=== PATIENT | female | born 1990 | race Caucasian/White ===

== ENCOUNTER 2024-05-19 05:33 | Inpatient (IN) ==
[2024-05-19] MEDS: Lactated Ringers 1000 ml BAG 1,000 ML IV SCH (06:45)
[2024-05-19 06:56] LABS: ABS Eosinophils 0.1 10^3/uL (0.0-0.5); ABS Lymphocytes 2.1 10^3/uL (1.0-4.8); ABS Monocytes 0.6 10^3/uL (0.0-0.9); ABS Neutrophils 6.4 10^3/uL (1.5-7.6); ABS Nucleated RBC 0.01 10^3/ul; Hematocrit 33.9 % (35-45); Hemoglobin 11.9 g/dL (11.5-14.3); Lymphocyte % 22.1 %; Mean Corpuscular Hemoglobin 31.6 pg (27-33); Mean Corpuscular Volume 90.4 fL (80-97); Mean Platelet Volume 10.6 fL (7.5-11.2); Nucleated Red Blood Cells % 0.1 %/100WBC (0.0-0.8); Platelet Count 152 10^3/uL (150-450); Red Blood Count 3.75 10^6/uL (3.63-4.92); Red Cell Distribution Width 12.9 % (12-17); White Blood Count 9.3 10^3/uL (3.8-11.8)
[2024-05-19] MEDS ORDERED: Ondansetron 4 mg VIAL 2 MG/ML 2 ml VIAL IV PRN (07:06)
[2024-05-19] MEDS ORDERED: Acetaminophen IV 1 GM/100ML 1,000 MG/100 ML BAG IV PRN (07:06)
[2024-05-19] MEDS ORDERED: Metoclopramide 5 MG/ML VIAL (10 mg) IV PRN (07:06)
[2024-05-19] MEDS ORDERED: Naloxone 0.4 mg VIAL 0.4 mg/ml 1 ml VIAL IV PUSH PRN (07:06)
[2024-05-19] MEDS ORDERED: Bupivacaine-MPF SPINAL 7.5 MG/ML - 2ML AMP ONE (07:27)
[2024-05-19] MEDS ORDERED: Dexamethasone IV 4 MG/ML VIAL 1 ml VIAL ONE (07:27)
[2024-05-19] MEDS ORDERED: Ondansetron 4 mg VIAL 2 MG/ML 2 ml VIAL ONE (07:27)
[2024-05-19] MEDS ORDERED: Oxytocin 10 UNITS/ML 1 ML VIAL ONE (07:27)
[2024-05-19] MEDS ORDERED: Morphine PF AMP (0.5MG/ML) 5 MG/10 ML AMP ONE (07:27)
[2024-05-19] MEDS: Sodium Citrate/Citric Acid LIQ 15 ML UDC PO ONE (07:33)
[2024-05-19] MEDS: ceFOXitin 2 GM IVPREMIX 2 GM/50 ML BAG IVPB ONE (07:34)
[2024-05-19] MEDS ORDERED: Dibucaine 1% OINT 28.35 GM TUBE PR PRN (08:55)
[2024-05-19] MEDS ORDERED: Witch Hazel PAD JAR TOPICAL PRN (08:55)
[2024-05-19] MEDS ORDERED: Glycerin ADULT 2.4 gm SUPP PR PRN (08:55)
[2024-05-19] MEDS ORDERED: Lactated Ringers 1000 ml BAG 1,000 ML IV SCH (09:00)
[2024-05-19 09:24] LABS: Urine Appearance Clear; Urine Bilirubin Negative (Negative); Urine Blood Negative (Negative); Urine Color Colorless; Urine Glucose Negative (Negative); Urine Ketones Negative (Negative); Urine Nitrite Negative (Negative); Urine Protein Negative (Negative); Urine Specific Gravity 1.005 (1.002-1.030); Urine Urobilinogen Negative (Negative); Urine pH 6.5 (5.0-8.0)
[2024-05-19 09:39] LABS: Urine Benzodiazepine Screen None Detected (None Detect); Urine Cannabinoids Screen None Detected (None Detect); Urine Opiates Screen None Detected (None Detect)
[2024-05-19] MEDS: Buffered Lidocaine 1% SYRIN 1 ml INTRADERM ONE (11:55)
[2024-05-19] MEDS: Lactated Ringers 1000 ml BAG 1,000 ML IV ONE (11:56)
[2024-05-19] MEDS: CMCS:Lamotrigine XR 200 mg TAB (NF) PO SCH ×2 (12:38→21:21)
[2024-05-19] MEDS: Oxytocin in LR 20,000 MILLI.UNIT/1,000 ML BAG IV SCH (12:38)
[2024-05-20 06:42] LABS: ABS Eosinophils 0.1 10^3/uL (0.0-0.5); ABS Lymphocytes 2.1 10^3/uL (1.0-4.8); ABS Monocytes 0.6 10^3/uL (0.0-0.9); ABS Neutrophils 7.2 10^3/uL (1.5-7.6); Eosinophil % 0.5 %; Hematocrit 28.2 % (35-45); Hemoglobin 10.1 g/dL (11.5-14.3); Lymphocyte % 20.7 %; Mean Corpuscular Hemoglobin 32.1 pg (27-33); Mean Corpuscular Hgb Conc 35.7 g/dL (31-36); Mean Platelet Volume 9.7 fL (7.5-11.2); Platelet Count 114 10^3/uL (150-450); Red Blood Count 3.13 10^6/uL (3.63-4.92); Red Cell Distribution Width 12.6 % (12-17)
[2024-05-22 08:02] VITALS: BP 134/82
[2024-05-22] MEDS: Measles, Mumps,Rubella VACC 0.5 ML/VIAL SUBCUT ONE (11:47)
== END 2024-05-22 12:03 | disposition home or self-care (01) | DRG 540 ==
LOC: MCHOB 05:33
PROVIDERS: ADMIT Obstetrics & Gynecology; ATTEND Obstetrics & Gynecology